=== PATIENT | male | born 1990 | race Caucasian/White ===

== ENCOUNTER 2020-09-25 10:16 | Emergency (ER) | payer OTHER, SELFPAY ==
--- NOTE | 2020-09-25 10:26 | ED.URI ---
HPI - URI/Sore Throat General Chief Complaint: Upper Respiratory Infection Stated Complaint: sore throat chest ketan and stuff nose Time Seen by Provider: 09/25/20 10:26 Source: patient and RN notes reviewed History of Present Illness HPI Narrative: Patient is a 30-year-old male who presents the urgent care with complaints of sore throat, chest congestion, cough, nasal congestion and runny nose. Patient states it started approximately 5 days ago and due to possible work contact with [employer] he was tested last , which was negative. Patient states that he has been using mucus relief and Tylenol. States that he does not have a thermometer and has not been checking his temperature but feels that he has had some chills and sweats. Patient states that he was not tested for strep but does typically get strep every time this year. Patient denies of any shortness of breath or chest pain. No other acute complaints. No acute distress noted. Patient aware of the plan of care. Some parts of this dictation were generated by voice recognition software and may contain typographical and/or grammatical inaccuracies. Related Data Allergies Allergy/AdvReac Type Severity Reaction Status Date / Time ibuprofen Allergy Unknown Other Verified 09/25/20 10:44 NSAIDS (Non-Steroidal Allergy Unknown Unknown Verified 09/25/20 10:44 Anti-Inflamma Review of Systems Review of Systems: Narrative: CONSTITUTIONAL: Reports of chills and sweats EYES: Denies visual changes, redness, or discharge. ENT: Reports of rhinorrhea, nasal congestion, sore throat CARDIOVASCULAR: Denies chest pain, palpitations, or edema. RESPIRATORY: Reports a mild nonproductive cough without dyspnea GASTROINTESTINAL: Denies abdominal pain, nausea, vomiting, or diarrhea. GENITOURINARY: Denies dysuria or hematuria. SKIN: Denies rash or itching. MUSCULOSKELETAL: Denies back pain, joint pain, or myalgia. NEUROLOGIC: Denies headache, numbness, or weakness. All other systems reviewed are negative, except as documented in HPI. [facility] Family History Family History (Updated 05/20/14 @ 07:13 by DOCTOR UNKNOWN) Father Hypertension Mother Family history of heart disease in male family member before age 55 Other Diabetes mellitus Social History Social History Smoking status: Current every day smoker Alcohol intake: current Comments At the time of my signature, I reviewed and agree with the nursing past medical, surgical, social, and family history. There is no relevant family history pertinent to the patient complaint. Exam Narrative: Exam Narrative: GENERAL: This is a well-nourished, well-developed patient, in no apparent distress. Poor hygiene HEAD: normocephalic, atraumatic. EYES: PERRL. Sclera clear/white. Vision is grossly intact. EARS: External ears normal, auditory canals clear and without drainage, TMs normal without perforation. Hearing grossly intact. NOSE: External nose normal with no obvious nasal discharge, nares without redness, no rhinorrhea. THROAT: Mucous membranes moist, moderate erythema noted to posterior oropharynx with moderate postnasal drainage. NECK: Neck supple CARDIOVASCULAR: Regular rate and rhythm without murmurs, gallops, or rubs. RESPIRATORY: Clear to auscultation. Breath sounds equal bilaterally. No wheezes, rales, or rhonchi. SKIN: warm, intact with no suspicious lesions or rash, good texture and turgor. NEURO: awake, alert, and oriented to person, place and time. There were no obvious focal neurologic abnormalities. EXTREMITIES: No clubbing, cyanosis, or edema. Course Vital Signs Vital signs: Vital Signs Temperature 100.8 F H 09/25/20 10:35 Pulse Rate 77 09/25/20 10:35 Respiratory Rate 22 H 09/25/20 10:35 Blood Pressure 134/74 09/25/20 10:35 Pulse Oximetry 98 09/25/20 10:35 Temperature 100.8 F H 09/25/20 10:35 Pulse Rate 77 09/25/20 10:35 Respiratory Rate 22 H 09/25/20 10:35 Blood Pressure 134/74 01
[2020-09-25 10:35] VITALS: BP 134/74; PULSE 77; RESP 22; TEMP 38.2; O2SAT 98
== END 2020-09-25 10:59 | disposition home or self-care (01) ==
PROVIDERS: Emergency Provider Nurse Practitioner Family; PCP Family Medicine
DX: J02.0 Streptococcal pharyngitis (principal); F17.200 Nicotine dependence, unspecified, uncomplicated
CPT/HCPCS: 87804; 87880; 99213; G0463

== ENCOUNTER 2022-06-08 15:53 | Emergency (ER) | payer OTHER, SELFPAY ==
[2022-06-08 16:01] VITALS: BP 123/78; PULSE 80; RESP 16; TEMP 36.6; O2SAT 100
--- NOTE | 2022-06-08 16:20 | ED.GENADULT ---
HPI - General Adult General Chief complaint: Urogenital-Male Stated complaint: STD History of Present Illness HPI narrative: Patient is a 31-year-old male who presents to the express care via POV after being exposed to chlamydia. He states his tested positive for chlamydia today prompting today's visit. Patient denies STD risk factors. He reports 1 partner over the past 3 months. He does not wear condoms while sexually active with his spouse. Related Data Allergies Allergy/AdvReac Type Severity Reaction Status Date / Time ibuprofen Allergy Unknown Other Verified 09/25/20 10:44 NSAIDS (Non-Steroidal Allergy Unknown Unknown Verified 09/25/20 10:44 Anti-Inflamma Review of Systems Review of Systems: Pertinent negatives: fever, chills, sweats, change in appetite, poor p.o. intake, recent weight loss/gain, back pain, flank pain, dysuria, hematuria, urinary frequency, urinary urgency, skin rash, rash on testes/groin/penis, pruritus, painful ejaculation, painful intercourse, lesions, abdominal pain, nausea, vomiting, diarrhea, and constipation PMFSH Family History Family History Father Hypertension Mother Family history of heart disease in male family member before age 55 Other Diabetes mellitus Social History Social History Smoking status: Current every day smoker Alcohol intake: current Comments I have reviewed and agree with the patient's past medical, surgical, social, and family hx as documented by the RN. There is no relevant family history pertinent to the presenting complaint. Course Course Level of Care: Express Care Visit Vital Signs Vital signs: Vital Signs Temperature 97.9 F 06/08/22 16:01 Pulse Rate 80 06/08/22 16:01 Respiratory Rate 16 06/08/22 16:01 Blood Pressure 123/78 06/08/22 16:01 Pulse Oximetry 100 06/08/22 16:01 Oxygen Delivery Room Air 06/08/22 16:01 Temperature 97.9 F 06/08/22 16:01 Pulse Rate 80 06/08/22 16:01 Respiratory Rate 16 06/08/22 16:01 Blood Pressure 123/78 06/08/22 16:01 Pulse Oximetry 100 06/08/22 16:01 Oxygen Delivery Room Air 06/08/22 16:01 Medical Decision Making Differential Diagnosis Differential Diagnosis: Chlamydia, gonorrhea, UTI, trichomonas, syphilis Vital Signs Vital Signs: Vital Signs Temperature 97.9 F 06/08/22 16:01 Pulse Rate 80 06/08/22 16:01 Respiratory Rate 16 06/08/22 16:01 Blood Pressure 123/78 06/08/22 16:01 Pulse Oximetry 100 06/08/22 16:01 Oxygen Delivery Room Air 06/08/22 16:01 Temperature 97.9 F 06/08/22 16:01 Pulse Rate 80 06/08/22 16:01 Respiratory Rate 16 06/08/22 16:01 Blood Pressure 123/78 06/08/22 16:01 Pulse Oximetry 100 06/08/22 16:01 Oxygen Delivery Room Air 06/08/22 16:01 Reviewed Lab Data Labs: Lab Results 06/08/22 06/08/22 Range/Units 16:10 16:10 C.trachomatis RNA (TMA) Pending N.gonorrhoeae RNA (TMA) Pending T. vaginalis Amp RNA Pending Critical Care Time Critical Care Time Critical Care Time: No Discharge Plan Discharge Clinical Impression: Encounter for assessment of STD exposure, High risk heterosexual behavior Patient Disposition: Home, Self-Care Condition: Stable Instructions: Antibiotic Form Additional Instructions: See discharge instructions for detailed information. Urine culture will be sent to determine if you have contracted an STI. Results should be returned within 1 week. We will contact you as soon as results are in. If you have been prescribed an antibiotic today be sure to take them as directed. Don't stop taking them just because you feel better. You need to take the full course of antibiotics. Don't have sex with anyone while you are being treated. If your treatment is a single dose of antibiotics, wait at least 7 days after you take t
[2022-06-08] MEDS: cefTRIAXone 500 MG VIAL IM (16:44)
== END 2022-06-08 17:06 | disposition home or self-care (01) ==
PROVIDERS: Emergency Provider Nurse Practitioner Family
DX: A74.9 Chlamydial infection, unspecified (principal); F17.290 Nicotine dependence, other tobacco product, uncomplicated
CPT/HCPCS: 87491; 87591; 87661; 96372; 99213; G0463; J0696

== ENCOUNTER 2023-09-12 08:18 | Emergency (ER) | payer OTHER, SELFPAY ==
--- NOTE | 2023-09-12 08:28 | ED.GENADULT ---
HPI - General Adult General Chief complaint: Upper Respiratory Infection Stated complaint: Fever and Cough Source: patient, RN notes reviewed and old records reviewed Mode of arrival: ambulatory Limitations: no limitations History of Present Illness HPI narrative: 33-year-old male patient presents to Express Care with complaint of, productive cough, congestion, fever that started this a.m. Patient states fever was 101.3. Patient did not take anything for fever. Patient states and child recently had RSV. Patient denies dizziness, weakness, chest pain, shortness of breath. MD complaint: cough/congestion/fever Onset (ago): hour(s) (2-3) Related Data Allergies Allergy/AdvReac Type Severity Reaction Status Date / Time ibuprofen Allergy Unknown Other Verified 09/12/23 08:28 NSAIDS (Non-Steroidal Allergy Unknown Unknown Verified 09/12/23 08:28 Anti-Inflamma Review of Systems Constitutional: Constitutional: Reports no additional constitutional complaints, Reports body ache(s), Denies chills, Denies fatigue, Reports fever(s) and Denies headache(s) Eyes: Eyes: Reports no additional eye complaints and Denies blurry vision ENT: Reports system reviewed and no additional complaints, except as documented, Denies vertigo, Denies dizziness, Denies ear discharge, Reports otalgia ( Bilateral ear pressure), Denies facial pain, Denies headache(s), Reports nasal congestion, Denies nasal discharge, Denies sinus pain, Denies sinus pressure and Denies sore throat Cardiovascular: Cardiovascular: Reports no additional cardiovascular complaints, Denies chest pain, Denies chest pain at rest, Denies rapid heart rate and Denies dyspnea Respiratory: Respiratory: Reports no additional respiratory complaints, Reports chest congestion, Reports cough, Denies pain on inspiration, Denies pain with cough and Denies dyspnea Gastrointestinal: Gastrointestinal: Denies abdominal pain, Denies diarrhea, Denies nausea and Denies vomiting Integumentary/Breasts: Skin/Breast: Denies rash Neurologic: Reports system reviewed and no additional complaints, except as documented, Denies vertigo, Denies dizziness and Denies headache(s) Endocrine: Endocrine: Denies fatigue [facility] Past Medical History Medical History Asthma Inguinal lymphadenopathy Mass of right thigh Family History Family History Father Hypertension Mother Family history of heart disease in male family member before age 55 Other Diabetes mellitus Social History Social History Smoking status: Current every day smoker Alcohol intake: current Comments At the time of my signature, I reviewed and agree with the nursing past medical, surgical, social, and family history. There is no relevant family history pertinent to the patient complaint. Exam Const: General: cooperative, healthy appearing, no acute distress and well nourished Nutritional Appearance: well nourished Orientation/consciousness: patient oriented x3 Limitations: no limitations HENMT: Head: normal to inspection and normocephalic Ears: external ears normal, TM's normal bilaterally, mastoids normal and Abnormal EAC present Face/Nose/Sinus: normal facial exam Face and sinus: normal facial exam Mouth: Yes Normal oral and palatal mucosa present, Yes oropharynx normal and Yes moist mucous membranes Throat: tonsils normal, uvula midline and no uvular edema Eyes: General: appearance normal, both eyes and all related structures Sclera: sclerae normal Pupils: Equal, round and reactive pupils present Resp: Effort & Inspection: normal respiratory effort, able to speak in complete sentences, no audible wheezes, no cough, no respiratory distress and no retractions Auscultation: clear to auscultation bilaterally, no crackles, no rales, no rhonchi and no wheezes Cardi
[2023-09-12 08:36] VITALS: BP 114/85; PULSE 103; RESP 16; TEMP 36.9; O2SAT 97
== END 2023-09-12 08:53 | disposition home or self-care (01) ==
PROVIDERS: Emergency Provider Registered Nurse
DX: J06.9 Acute upper respiratory infection, unspecified (principal); J45.909 Unspecified asthma, uncomplicated; F17.200 Nicotine dependence, unspecified, uncomplicated; Z20.822 Contact with and (suspected) exposure to COVID-19
CPT/HCPCS: 87426; 87804; 99213; C9803; G0463

== ENCOUNTER 2023-09-25 09:29 | Emergency (ER) | payer OTHER, SELFPAY ==
[2023-09-25 09:47] VITALS: BP 114/80; PULSE 78; RESP 16; TEMP 36.8; O2SAT 98
--- NOTE | 2023-09-25 09:57 | ED.EAR ---
HPI - Ear Problem General Chief complaint: Ear Stated complaint: CLOGGED EARS Source: patient Mode of arrival: ambulatory Limitations: no limitations History of Present Illness HPI Narrative: 33-year-old male presented for complaint of bilateral decreased hearing over the past few days. He states he had COVID about 2 weeks ago, and ear symptoms have worsened. Endorses occasional tinnitus and dizziness. She is taking DayQuil for symptoms. Endorses a history of ear infections but has not followed up with ENT. MD Complaint: ear pain Related Data Allergies Allergy/AdvReac Type Severity Reaction Status Date / Time ibuprofen Allergy Unknown Other Verified 09/25/23 09:40 NSAIDS (Non-Steroidal Allergy Unknown Unknown Verified 09/25/23 09:40 Anti-Inflamma Review of Systems Review of Systems: CONSTITUTIONAL: Denies malaise, chills, or fever. EYES: Denies visual changes, redness, or discharge. ENT: Denies sinus pain, and sore throat. Reports decreased hearing CARDIOVASCULAR: Denies chest pain, palpitations, or edema. RESPIRATORY: Denies cough or dyspnea. GASTROINTESTINAL: Denies abdominal pain, nausea, vomiting, diarrhea SKIN: Denies rash or itching. MUSCULOSKELETAL: Denies myalgia. NEUROLOGIC: Denies headache. All systems reviewed & are unremarkable except as noted in HPI and below PMFSH Past Medical History Medical History Asthma Inguinal lymphadenopathy Mass of right thigh Family History Family History Father Hypertension Mother Family history of heart disease in male family member before age 55 Other Diabetes mellitus Social History Social History Smoking status: Current every day smoker Alcohol intake: current Comments At time of signature, agree with nursing past medical, surgical, social and family history. There is no relevant family history pertinent to the presenting complaint Exam Narrative: GENERAL: Well-appearing, EYES: conjunctivae clear ENT: Nares clear. Mucous membranes moist. TMs bulging with mild erythema and dull light reflex bilaterally; no tragal tenderness. Oropharynx not erythematous without lesions. NECK: Supple. No lymphadenopathy CHEST: Clear to auscultation, breath sounds equal. HEART: Regular rate and rhythm. No murmur heard. SKIN: Warm, dry, no rash. NEURO: Alert and oriented x3. PSYCH: Normal mood and affect Course Course Emergency Course: Patient is aware of diagnosis, understands and agrees to treatment plan. Anticipatory guidance given. Patient agrees to follow-up as directed and is aware of reasons to seek care at the emergency department. Portions of this record may have been created with voice recognition software Level of Care: Express Care Visit Vital Signs Vital signs: Vital Signs Temperature 98.2 F 09/25/23 09:47 Pulse Rate 78 09/25/23 09:47 Respiratory Rate 16 09/25/23 09:47 Blood Pressure 114/80 09/25/23 09:47 Pulse Oximetry 98 09/25/23 09:47 Temperature 98.2 F 09/25/23 09:47 Pulse Rate 78 09/25/23 09:47 Respiratory Rate 16 09/25/23 09:47 Blood Pressure 114/80 09/25/23 09:47 Pulse Oximetry 98 09/25/23 09:47 Reviewed Medical Decision Making MDM Narrative Medical decision making narrative: Discussed physical exam findings. advised supportive measures and signs/symptoms to go to the ER. Patient is appropriate for outpatient treatment and follow-up. Differential Diagnosis Differential Diagnosis: Coronavirus, strep pharyngitis, allergic rhinitis, upper respiratory tract infection, sinusitis, rhinosinusitis, nasopharyngitis, viral pharyngitis, otitis media, otitis externa, eustachian tube dysfunction, foreign body, cerumen impaction. Vital Signs Vital Signs: Vital Signs Temperature 98.2 F 09/25/23 09:47 Pulse Rate 78
== END 2023-09-25 10:04 | disposition home or self-care (01) ==
PROVIDERS: Emergency Provider Nurse Practitioner Family
DX: H66.93 Otitis media, unspecified, bilateral (principal); J45.909 Unspecified asthma, uncomplicated; F17.200 Nicotine dependence, unspecified, uncomplicated
CPT/HCPCS: 99213; G0463

== ENCOUNTER 2023-12-24 11:51 | Emergency (ER) | payer OTHER, SELFPAY ==
[2023-12-24 11:59] VITALS: BP 113/82; PULSE 77; RESP 16; TEMP 36.9; O2SAT 99
--- NOTE | 2023-12-24 12:07 | ED.GENADULT ---
HPI - General Adult General Chief complaint: Wound/Laceration Stated complaint: Hemorroid Time Seen by Provider: 12/24/23 12:08 Source: patient Mode of arrival: ambulatory Limitations: no limitations History of Present Illness HPI narrative: 33-year-old male presents with concern for hemorrhoid. Reports he has had some constipation with hard stools in yesterday began having hemorrhoidal pain. Reports he has used preparation H without relief. Reports difficult to work due to the pain. MD complaint: Hemorrhoid Related Data Allergies Allergy/AdvReac Type Severity Reaction Status Date / Time ibuprofen Allergy Unknown Other Verified 12/24/23 12:00 NSAIDS (Non-Steroidal Allergy Unknown Unknown Verified 12/24/23 12:00 Anti-Inflamma Review of Systems Review of Systems: CONSTITUTIONAL: Denies malaise, chills, sweats, or fever. GASTROINTESTINAL: Reports constipation, hemorrhoids All systems reviewed & are unremarkable except as noted in HPI and below PMFSH Past Medical History Medical History Asthma Inguinal lymphadenopathy Mass of right thigh Family History Family History Father Hypertension Mother Family history of heart disease in male family member before age 55 Other Diabetes mellitus Social History Social History Smoking status: Current every day smoker Alcohol intake: current Comments At time of signature, agree with nursing past medical, surgical, social and family history. There is no relevant family history pertinent to the presenting complaint Exam Narrative: GENERAL: Well-appearing, well-nourished, and in no acute distress. HEAD: Normocephalic, atraumatic. EYES: PERRLA, sclera clear ENT: Nares clear. NECK: Supple. CHEST: No respiratory distress. Speaks in full sentences. HEART: Regular rate and rhythm. GI: Partially thrombosed hemorrhoid approximately 2 cm in diameter SKIN: Warm, dry, no visible rash. NEURO: Alert and oriented x3. PSYCH: Normal mood and affect Course Course Emergency Course: Patient is aware of diagnosis, understands and agrees to treatment plan. Anticipatory guidance given. Patient agrees to follow-up as directed and is aware of reasons to seek care at the emergency department. Portions of this record may have been created with voice recognition software Level of Care: Express Care Visit Vital Signs Vital signs: Vital Signs Temperature 98.4 F 12/24/23 11:59 Pulse Rate 77 12/24/23 11:59 Respiratory Rate 16 12/24/23 11:59 Blood Pressure 113/82 12/24/23 11:59 Pulse Oximetry 99 12/24/23 11:59 Temperature 98.4 F 12/24/23 11:59 Pulse Rate 77 12/24/23 11:59 Respiratory Rate 16 12/24/23 11:59 Blood Pressure 113/82 12/24/23 11:59 Pulse Oximetry 99 12/24/23 11:59 Reviewed. Medical Decision Making MDM Narrative Medical decision making narrative: Exam findings show no acute concerns or changes; patient is non-toxic appearing and is in no distress. Patient is appropriate for outpatient treatment and follow-up. Vital Signs Vital Signs: Vital Signs Temperature 98.4 F 12/24/23 11:59 Pulse Rate 77 12/24/23 11:59 Respiratory Rate 16 12/24/23 11:59 Blood Pressure 113/82 12/24/23 11:59 Pulse Oximetry 99 12/24/23 11:59 Temperature 98.4 F 12/24/23 11:59 Pulse Rate 77 12/24/23 11:59 Respiratory Rate 16 12/24/23 11:59 Blood Pressure 113/82 12/24/23 11:59 Pulse Oximetry 99 12/24/23 11:59 Critical Care Time Critical Care Time Critical Care Time: No Discharge Plan Discharge Clinical Impression: Hemorrhoid thrombosis Patient Disposition: Home, Self-Care Condition: Stable Instructions: Hemorrhoids (ED) Additional Instructions: 1) Please follow-up with general surgery for further evaluation. 2)
== END 2023-12-24 12:20 | disposition home or self-care (01) ==
PROVIDERS: Emergency Provider Nurse Practitioner
DX: K64.5 Perianal venous thrombosis (principal); J45.909 Unspecified asthma, uncomplicated; F17.200 Nicotine dependence, unspecified, uncomplicated
CPT/HCPCS: 99213; G0463

== ENCOUNTER 2024-10-27 09:12 | Emergency (ER) | payer OTHER, SELFPAY ==
[2024-10-27 09:46] VITALS: BP 99/71; PULSE 67; RESP 16; TEMP 37.2; O2SAT 99
--- NOTE | 2024-10-27 09:49 | ED.URI ---
HPI - URI/Sore Throat General Chief Complaint: Upper Respiratory Infection Stated Complaint: Strep Symptoms Time Seen by Provider: 10/27/24 09:40 Source: patient Mode of arrival: ambulatory Limitations: no limitations History of Present Illness HPI Narrative: Ivan is a 34-year-old male patient presenting to the clinic today with complaints of sore throat. He reports he took his daughter to the ER last night she tested positive for strep. Daughter and son both have influenza A. MD elicited complaint: sore throat and nasal congestion Related Data Home Medications ?Medication ?Instructions ?Recorded ?Confirmed ?Last Taken ?Type No Home Medications 10/27/24 10/27/24 Unknown History Allergies Allergy/AdvReac Type Severity Reaction Status Date / Time ibuprofen Allergy Unknown Other Verified 10/27/24 09:32 NSAIDS (Non-Steroidal Allergy Unknown Unknown Verified 10/27/24 09:32 Anti-Inflamma Review of Systems Review of Systems: Pertinent positives per HPI. Patient denies any fever, chills, rash, headache, visual changes, dizziness, shortness of breath, chest pain, palpitations, nausea, vomiting, diarrhea, constipation, abdominal pain, or any urinary issues. [facility] Past Medical History Medical History Asthma Mass of right thigh Inguinal lymphadenopathy Surgical History Surgical History Hx of excision of mass thrombosed hemorrhoid 12/26/23 Family History Family History Father Hypertension Mother Family history of heart disease in male family member before age 55 Other Diabetes mellitus Social History Social History Social History: -- recently in September 2023 from breast cancer Smoking status: Current every day smoker Tobacco type: e-cigarettes/vaping Alcohol intake: current Alcohol use details: socially Comments At the time of my signature, I reviewed and agree with the nursing past medical, surgical, social, and family history. There is no relevant family history pertinent to the patient complaint. Exam Narrative: General: Well-developed, well nourished, in no apparent distress Head: Normocephalic, atraumatic Eyes: Pupils equally round and reactive to light bilaterally, EOM intact, sclera and conjunctive clear, no discharge, lids normal Ears: TMs intact and clear, ear canals clear, no drainage, grossly hearing normal. Nose: Nares patent, clear nasal discharge, no inflammation, no sinus tenderness. Mouth: Oral pharynx red without lesions or masses, good dentition, MMM. Postnasal drip Neck: Supple, trachea midline, no enlargement of anterior or posterior cervical nodes, no thyroid masses or goiter palpable. Cardio: Regular rate and rhythm, s1 and s2 normal, no murmur appreciated. Resp: Clear to auscultation bilaterally, no rhonchi, rales, wheezing or rubs Course Course Emergency Course: Portions of this record may have been created with voice recognition software. Level of Care: Express Care Visit Vital Signs Vital signs: Vital Signs Temperature 37.2 C 10/27/24 09:46 Pulse Rate 67 10/27/24 09:46 Respiratory Rate 16 10/27/24 09:46 Blood Pressure 99/71 L 10/27/24 09:46 Pulse Oximetry 99 10/27/24 09:46 Temperature 37.2 C 10/27/24 09:46 Pulse Rate 67 10/27/24 09:46 Respiratory Rate 16 10/27/24 09:46 Blood Pressure 99/71 L 10/27/24 09:46 Pulse Oximetry 99 10/27/24 09:46 Vital signs reviewed MDM - URI/Sore Throat MDM Narrative Medical decision making narrative: At the time of visit patient is resting comfortably on the exam table. Patient appears to be nontoxic. Labs: Strep test was negative in the clinic today. We will send strep for culture Plan: I suspect patient has pharyngitis with influenza exposure. Supportive measures were discussed with the patient and they voiced understanding discharge instructions and agrees to treatment plan. Return precautions reviewed Differential Diagnosis Differential diagnosis: Likely upper respiratory infection, otitis media, sinusitis, viral infection, bronchitis, influenza, pharyngitis and other (COVID) Discharge Plan Discharge Clinical Impression: Exposure to influenza Pharyngitis Qualifiers: Pharyngitis/tonsillitis etiology: unspecified etiology Qualified Code(s): J02.9 - Acute pharyngitis, unspecified Patient Disposition: Home, Self-Care Condition: Stable Instructions: Antibiotic Form, Pharyngitis (ED), Influenza (ED) Additional Instructions: Strep test was negative in the clinic today. We will send for culture if this comes back positive we will contact him place you on antibiotics at that time May take DayQuil/NyQuil for cold/flu symptoms Increase fluids and stay well hydrated Tylenol/motrin for pain/fever Flonase and OTC antihistamines as directed Vicks vapor rub to open sinuses Sinus rinses for congestion Cepacol spray, cough drops, throat lozenges, warm tea with honey/lemon, gargle salt water to soothe throat BRAT diet for diarrhea Clear liquids x 24 hours then advance as tolerated for nausea/vomiting Go to the ED if you develop a worsening in your condition- high fever not controlled by Tylenol or Motrin, dehydration, weakness, lethargy, shortness of breath, or chest pain. Follow up with your PCP in 3-5 days if symptoms persist. Patient Language: Indonesian Prescriptions: No Action No Home Medications Follow-up/Referrals: PHYSICIAN,GLOBAL SAFETY OFFICER [Primary Care Provider] - Time of Disposition: 09:53 Quality NIHSS Nursing Documentation ED NIHSS nursing documentation: reviewed/agree
[2024-10-27 09:57] LABS: EDSTREPNEGPOS1 Negative (Negative)
== END 2024-10-27 10:06 | disposition home or self-care (01) ==
PROVIDERS: Emergency Provider Nurse Practitioner Family
DX: J02.9 Acute pharyngitis, unspecified (principal); Z20.828 Contact with and (suspected) exposure to other viral communicable diseases; F17.290 Nicotine dependence, other tobacco product, uncomplicated; J45.909 Unspecified asthma, uncomplicated
CPT/HCPCS: 87081; 87880; 99213; G0463